=== PATIENT | female | born 1960 | race Caucasian/White ===

== ENCOUNTER 2016-08-02 15:51 | Emergency (ER) | payer OTHER ==
[~2016-08-02] VITALS: Ht 165.1 cm; Wt 70.0 kg
[2016-08-02 16:00] VITALS: TEMP 37.1; Ht 165.1 cm; Wt 70.0 kg
[2016-08-02] MEDS ORDERED: ADENOSINE IV SOLN 3 MG/ML 2 ML VIAL IV ONE (16:14)
[2016-08-02] MEDS ORDERED: METOPROLOL TARTRATE 1 MG/ML VIAL IV STA (16:28)
[2016-08-02 16:38] LABS: BASO % 0.5 %; BASO ABS # 0.06 K/uL (0-0.2); COMPLETE YES; EOS % 0.6 %; HEMATOCRIT 46.3 % (37-47); IG% 0.2 %; LYMPH % 18.5 %; MEAN CELL VOLUME 86.2 fL (80-100); MEAN CORPUSCULAR HEMOGLOBIN 29.6 pg (25-34); MEAN CORPUSCULAR HGB CONC 34.3 g/dl (32-36); MEAN PLATELET VOLUME 10.8 fL (7.4-10.4); MONO % 7.6 %; NEUT % 72.6 %; PLATELET COUNT 306 K/uL (130-400); RED BLOOD COUNT 5.37 M/uL (4.2-5.4); WHITE BLOOD COUNT 12.45 K/uL (4.8-10.8)
[2016-08-02 16:56] LABS: ALT/SGPT 25 U/L (12-78); BLOOD UREA NITROGEN 17 mg/dl (7-18); BUN/CREATININE RATIO 18.2 (10-20); CALCIUM 9.4 mg/dl (8.5-10.1); CARBON DIOXIDE 24 mmol/L (21-32); CHLORIDE 105 mmol/L (98-107); CREATININE 0.91 mg/dl (0.60-1.20); GLUCOSE 110 mg/dl (70-99); POTASSIUM 3.9 mmol/L (3.5-5.1); SODIUM 139 mmol/L (136-145)
[2016-08-02 17:07] LABS: ALKALINE PHOSPHATASE 140 U/L (45-117); AST/SGOT 15 U/L (15-37)
[2016-08-02] MEDS ORDERED: LEVO50TA6 PO (17:39)
[2016-08-02] MEDS ORDERED: METO25TA56 PO (17:50)
--- NOTE | 2016-08-02 17:50 | EMERGENCY ROOM VISIT NOTE ---
History Report prepared by Alexibnatanael: Aneudy Hernandez Under the Supervision of: Dr. Davian Gunderson D.O. First contact with patient: 16:09 Chief Complaint: RAPID HEART RATE Stated Complaint: PAIN WHEN BREATHING, HEART History of Present Illness The patient is a 55 year old female who presents to the Emergency Room with complaints of waxing & waning rapid heart rate since last night. The patient has felt her heart racing before, but cannot recall what heart condition she might have. She currently has a heart monitor in place to find the source of her tachycardic episodes. The patient felt short of breath when she was driving to work earlier today. She also complains of chest discomfort that she feels with breathing. The patient had a headache while she was at work, for which she took Ibuprofen. The patient follows up [facility]. Source of History: patient Onset: last night Position: other (heart) Quality: other (rapid rate) Timing: waxes/wanes Associated Symptoms: + SOB, + chest pain, + headache Review of Systems See HPI for pertinent positives & negatives. A total of 10 systems reviewed and were otherwise negative. Past Medical & Surgical Medical Problems: (1) No known health problems Family History No pertinent family history Social History Smoking Status: Current Some Day Smoker Marital Status: Housing Status: lives with family Occupation Status: employed Current/Historical Medications Scheduled Levothyroxine Sodium (Levothyroxine Sodium), 50 MCG PO DAILY Metoprolol Tartrate (Lopressor) (Lopressor), 0.5 TAB PO BID Allergies Coded Allergies: No Known Allergies (Unverified , 08/02/16) Physical Exam Vital Signs Date Time Temp Pulse Resp B/P Pulse Ox O2 Delivery O2 Flow Rate FiO2 08/02/16 17:00 86 110/90 08/02/16 16:27 100 Room Air 08/02/16 16:26 89 08/02/16 16:25 89 20 133/83 100 Room Air 08/02/16 16:12 96 Room Air 08/02/16 16:00 37.1 189 18 121/82 98 Room Air Physical Exam CONSTITUTIONAL/VITAL SIGNS: Reviewed / noted above. GENERAL: Non-toxic in appearance. INTEGUMENTARY: Warm, dry, and Terral. HEAD: Normocephalic. EYES: without scleral icterus or trauma. ENT/OROPHARYNX: clear and moist. LYMPHADENOPATHY/NECK: Is supple without lymphadenopathy or meningismus. RESPIRATORY: Lungs clear and equal. CARDIOVASCULAR: Tachycardic, regular rhythm. GI/ABDOMEN: Soft and nontender. No organomegaly or pulsatile mass. No rebound or guarding. Normal bowel sounds. EXTREMITIES: Warm and well perfused. BACK: No CVA tenderness. NEUROLOGICAL: Intact without focal deficits. PSYCHIATRIC: normal affect. MUSCULOSKELETAL: Normally developed with good muscle tone. Medical Decision & Procedures Laboratory Results 08/02/16 16:20 Red Blood Count 5.37, Mean Corpuscular Volume 86.2, Mean Corpuscular Hemoglobin 29.6, Mean Corpuscular Hemoglobin Concent 34.3, Mean Platelet Volume 10.8, Neutrophils (%) (Auto) 72.6, Lymphocytes (%) (Auto) 18.5, Monocytes (%) (Auto) 7.6, Eosinophils (%) (Auto) 0.6, Basophils (%) (Auto) 0.5, Neutrophils # (Auto) 9.03, Lymphocytes # (Auto) 2.30, Monocytes # (Auto) 0.95, Eosinophils # (Auto) 0.08, Basophils # (Auto) 0.06 08/02/16 16:20 Test 08/02/16 16:20 White Blood Count 12.45 K/uL (4.8-10.8) Red Blood Count 5.37 M/uL (4.2-5.4) Hemoglobin 15.9 g/dL (12.0-16.0) Hematocrit 46.3 % (37-47) Mean Corpuscular Volume 86.2 fL (80-100) Mean Corpuscular Hemoglobin 29.6 pg (25-34) Mean Corpuscular Hemoglobin Concent 34.3 g/dl (32-36) Platelet Count 306 K/uL (130-400) Mean Platelet Volume 10.8 fL (7.4-10.4) Neutrophils (%) (Auto) 72.6 % Lymphocytes (%) (Auto) 18.5 % Monocytes (%) (Auto) 7.6 % Eosinophils (%) (Auto) 0.6 % Basophils (%) (Auto) 0.5 % Neutrophils # (Auto) 9.03 K/uL (1.4-6.5) Lymphocytes # (Auto) 2.30 K/uL (1.2-3.4) Monocytes # (Auto) 0.95 K/uL (0.11-0.59) Eosinophils # (Auto) 0.08 K/uL (0-0.5) Basophils # (Auto) 0.06 K/uL (0-0.2) RDW Standard Deviation 41.9 fL (36.4-46.3) RDW Coefficient of Variation 13.3 % (11.5-14.5) Immature Granulocyte % (Auto) 0.2 % Immature Granulocyte # (Auto) 0.03 K/uL (0.00-0.02) Anion Gap 10.0 mmol/L (3-11) Est Creatinine Clear Calc Drug Dose 69.4 ml/min Estimated GFR () 82.9 Estimated GFR (Non- 71.5 BUN/Creatinine Ratio 18.2 (10-20) Calcium Level 9.4 mg/dl (8.5-10.1) Total Bilirubin 0.4 mg/dl (0.2-1) Direct Bilirubin < 0.1 mg/dl (0-0.2) Aspartate Amino Transf (AST/SGOT) 15 U/L (15-37) Alanine Aminotransferase (ALT/SGPT) 25 U/L (12-78) Alkaline Phosphatase 140 U/L (45-117) Troponin I < 0.015 ng/ml (0-0.045) Total Protein 8.9 gm/dl (6.4-8.2) Albumin 4.2 gm/dl (3.4-5.0) Thyroid Stimulating Hormone (TSH) 3.870 uIu/ml (0.300-4.500) Laboratory results as stated above per my review. Medications Administered Medications (Trade) Dose Ordered Sig/Jolie Route Start Time Stop Time Status Last Admin Dose Admin Adenosine (Adenosine IV) 18 mg STK-MED ONCE IV 08/02/16 16:14 08/02/16 16:16 DC 08/02/16 16:20 6 MG Metoprolol Tartrate (Lopressor Iv) 5 mg NOW STAT IV 08/02/16 16:28 08/02/16 16:31 DC 08/02/16 17:00 5 MG ECG Indication: tachycardia Rate (beats per minute): 175 Rhythm: SVT Findings: no acute ischemic change, no ectopy ED Course 1612: Previous medical records were reviewed. The patient was evaluated in room B8. A complete history and physical examination was performed. 1619: Patient was cardioverted with Adenosine. Heart rate down to 92. 1625: Discussed the case with Dr. Conti, [facility]. 1629: Repeat EKG showed normal sinus rhythm at 91, no acute injury or ectopy. 1650: Reassessed the patient. Discussed the findings with her. She verbalized understanding and agreement. The patient is ready for discharge. Medical Decision Differential includes viral illness, influenza, streptococcal pharyngitis, meningitis, pneumonia, sinusitis, UTI, pyelonephritis, otitis media. This is a 55-year-old female who presents to the ED with a chief complaint of an SVT. She was treated with adenosine 6 mg IV. Her SVT resolved into a sinus rhythm. She was given 5 mg IV Lopressor. I spoke with Dr. Conti who recommended low-dose beta adrienne. Patient will follow-up with Dr. Zepeda. Consults Time Called: 1619 Consulting Physician: Dr. Conti [facility]. Returned Call: [phone]: Discussed the case with Dr. Conti [facility]. Impression Primary Impression: SVT (supraventricular tachycardia) Scribe Attestation The scribe's documentation has been prepared under my direction and personally reviewed by me in its entirety. I confirm that the note above accurately reflects all work, treatment, procedures, and medical decision making performed by me. Departure Information Dispostion Home / Self-Care Prescriptions Metoprolol Tartrate (Lopressor) (Lopressor) 25 Mg Tab 0.5 TAB PO BID for 30 Days, #30 TAB 1 Refill Prov: Davian Gunderson D.O. 08/02/16 Referrals Marciano Torres M.D.([facility]ILLIAN) (PCP) Forms HOME CARE DOCUMENTATION FORM, IMPORTANT VISIT INFORMATION, WORK / SCHOOL INSTRUCTIONS Patient Instructions My [facility], Understanding Supraventricular Tachycardia SVT Additional Instructions Metoprolol as prescribed. Follow-up with Dr. Zepeda. Call for appointment tomorrow. Return for any recurrence or concerns.
[2016-08-02 18:09] VITALS: BP 139/78; PULSE 85; O2SAT 98
== END 2016-08-02 18:11 | disposition home or self-care (01) ==
LOC: C.EDB 15:52
DX: I47.1 Supraventricular tachycardia (principal); F17.210 Nicotine dependence, cigarettes, uncomplicated; Z79.899 Other long term (current) drug therapy

== ENCOUNTER → 2016-08-14 | Outpatient (CLI) | payer OTHER ==
[~2016-08-14] MED LIST: LEVO50TA6 PO; METO25TA56 PO
--- NOTE | 2016-08-15 13:23 | MAMMOGRAPHY REPORT ---
BILATERAL DIGITAL SCREENING MAMMOGRAM TOMOSYNTHESIS WITH CAD: 08/14/2016 TECHNIQUE: Breast tomosynthesis in addition to standard 2D mammography was performed. Current study was also evaluated with a Computer Aided Detection (CAD) system. COMPARISON: Comparison is made to exams dated: 08/13/2015 mammogram, 08/11/2014 mammogram, 08/06/2012 m ammogram, 06/08/2010 mammogram, 08/07/2013 mammogram, and 06/12/2011 mammogram - [facility]. BREAST COMPOSITION: There are scattered areas of fibroglandular density in both breasts. FINDINGS: No suspicious masses, calcifications, or areas of architectural distortion are noted in e ither breast. There has been no significant interval change compared to prior exams. IMPRESSION: ACR BI-RADS CATEGORY 1: NEGATIVE There is no mammographic evidence of malignancy. A 1 year screening mammogram is recommended. The p atient will receive written notification of the results. Approximately 10% of breast cancers are not detected with mammography. A negative mammographic repor t should not delay biopsy if a clinically suggestive mass is present. Vida Donaldson M.D. /:08/15/2016 07:38:42 Baby Counselor: Janet GARRETT(Taryn)(M), [facility] letter sent: Normal 1/2 BI-RADS Code: ACR BI-RADS Category 1: Negative
== END | disposition home or self-care (01) ==
LOC: C.MAMM 16:14
PROVIDERS: ATTEND Family Medicine
DX: Z12.31 Encounter for screening mammogram for malignant neoplasm of breast (principal)

== ENCOUNTER → 2017-08-17 | Outpatient (CLI) | payer OTHER ==
--- NOTE | 2017-08-20 14:50 | MAMMOGRAPHY REPORT ---
BILATERAL DIGITAL SCREENING MAMMOGRAM TOMOSYNTHESIS WITH CAD: 08/17/2017 CLINICAL HISTORY: Routine screening. TECHNIQUE: Breast tomosynthesis in addition to standard 2D mammography was performed. Current study was also evaluated with a Computer Aided Detection (CAD) system. COMPARISON: Comparison is made to exams dated: 08/14/2016 mammogram, 08/13/2015 mammogram, 08/11/2014 m ammogram, 08/07/2013 mammogram, 08/06/2012 mammogram, and 06/12/2011 mammogram - [facility]ter. BREAST COMPOSITION: There are scattered areas of fibroglandular density in both breasts. FINDINGS: No suspicious masses, calcifications, or areas of architectural distortion are noted in ei ther breast. There has been no significant interval change compared to prior exams. IMPRESSION: ACR BI-RADS CATEGORY 1: NEGATIVE There is no mammographic evidence of malignancy. A 1 year screening mammogram is recommended. The pa tient will receive written notification of the results. Approximately 10% of breast cancers are not detected with mammography. A negative mammographic report should not delay biopsy if a clinically suggestive mass is present. Vida Donaldson M.D. /:08/17/2017 16:14:22 Principal Automation Engineer: Kelby GARRETT(Taryn)(M), [facility] letter sent: Normal 1/2 BI-RADS Code: ACR BI-RADS Category 1: Negative
== END ==
LOC: C.MAMM 15:34
PROVIDERS: ATTEND Family Medicine
DX: Z12.31 Encounter for screening mammogram for malignant neoplasm of breast (principal)